=== PATIENT | female | born 1950 | race Caucasian/White ===

== ENCOUNTER 2017-08-24 08:56 | Emergency (ER) | payer MEDICARE ==
[~2017-08-24] VITALS: Ht 157.5 cm; Wt 65.0 kg
[2017-08-24 09:01] VITALS: BP 172/87; PULSE 77; RESP 16; TEMP 97.4; O2SAT 100
--- NOTE | 2017-08-24 09:13 | PD ---
HPI Chief Complaint: Abdominal Pain Time Seen by Provider: 09:09 Travel History International Travel<30 days: No Contact w/Intl Traveler<30days: No Traveled to known affect area: No History of Present Illness HPI Patient is visiting from [place]. Patient comes in complaining of suprapubic area pain, rates it as 5 out of 10, crampy in nature, worse with urination. Patient is also complaining of frequency dysuria and urgency. Patient denies any alleviating or aggravating factors. Patient denies any associated factors such as fever cough chest pain back pain nausea vomiting or diarrhea PFSH Past Medical History Cardiovascular Problems: Yes Diminished Hearing: No Genitourinary: Yes (UTI) Headaches: Yes Hypertension: Yes Respiratory: Yes (BRONCHITIS) Menopausal: Yes : 1 Para: 1 Past Surgical History Section: Yes Mastectomy: Yes (RIGHT SIDE) Tonsillectomy: Yes Social History Alcohol Use: Yes (OCC) Tobacco Use: No Substance Use: No Allergies-Medications (Allergen,Severity, Reaction): Coded Allergies: No Known Allergies (Unverified Adverse Reaction, Unknown, 08/24/17) Reported Meds & Prescriptions Reported Meds & Active Scripts Active Metoprolol Tartrate 25 Mg Tab 25 Mg PO BID Lisinopril 20 Mg Tab 20 Mg PO DAILY Review of Systems Except as stated in HPI: all other systems reviewed are Neg General / Constitutional: No: Fever Eyes: No: Visual changes HENT: No: Headaches Cardiovascular: No: Chest Pain or Discomfort Respiratory: No: Shortness of Breath Gastrointestinal: Positive: Abdominal Pain (Suprapubic) Genitourinary: No: Dysuria Musculoskeletal: No: Pain Skin: No Rash Neurologic: No: Weakness Psychiatric: No: Depression Endocrine: No: Polydipsia Hematologic/Lymphatic: No: Easy Bruising Physical Exam Narrative GENERAL: SKIN: Warm and dry. HEAD: Atraumatic. Normocephalic. EYES: Pupils equal and round. No scleral icterus. No injection or drainage. ENT: No nasal bleeding or discharge. Mucous membranes pink and moist. NECK: Trachea midline. No JVD. CARDIOVASCULAR: Regular rate and rhythm. RESPIRATORY: No accessory muscle use. Clear to auscultation. Breath sounds equal bilaterally. GASTROINTESTINAL: Abdomen soft, non-tender, nondistended. MUSCULOSKELETAL: Extremities without clubbing, cyanosis, or edema. No obvious deformities. NEUROLOGICAL: Awake and alert. No obvious cranial nerve deficits. Motor grossly within normal limits. Five out of 5 muscle strength in the arms and legs. Normal speech. PSYCHIATRIC: Appropriate mood and affect; insight and judgment normal. Data Data Last Documented VS Vital Signs Date Time Temp Pulse Resp B/P (MAP) Pulse Ox O2 Delivery O2 Flow Rate FiO2 08/24/17 13:16 08/24/17 09:18 97.6 75 14 100 Orders Orders Urinalysis - C+S If Indicated (08/24/17 09:09) Abdomen, Flat & Upright (08/24/17 ) Chest, Single Ap (08/24/17 09:09) Ct Abd/Pel W/O Iv Contrast (08/24/17 10:24) Ed Discharge Order (08/24/17 12:29) Labs Laboratory Tests Test 08/24/17 09:15 Urine Color LIGHT-YELLOW Urine Turbidity CLEAR Urine pH 6.0 Urine Specific [place] 1.006 Urine Protein NEG mg/dL Urine Glucose (UA) NEG mg/dL Urine Ketones NEG mg/dL Urine Occult Blood NEG Urine Nitrite NEG Urine Bilirubin NEG Urine Urobilinogen LESS THAN 2.0 MG/DL Urine Leukocyte Esterase NEG Urine RBC 1 /hpf Urine WBC LESS THAN 1 /hpf Urine Squamous Epithelial Cells <1 /hpf Microscopic Urinalysis Comment CULT NOT INDICATED MDM Medical Decision Making Medical Screen Exam Complete: Yes Emergency Medical Condition: Yes Medical Record Reviewed: Yes Differential Diagnosis SBO versus ileus versus free air versus UTI Narrative Course patient's ct showed retroperitoneal lymph nodes which need to be evaluated for possible cancer. you are being mandatory referred to oncologist dr paige, please keep your appointment Diagnosis Primary Impression: hypertension-medicatio refill Additional Impression: abdominal pain due to lymphadenopathy Referrals: Jb Paige MD [facility] Patient Instructions: Abdominal Pain (ED), General Instructions, Hypertension ( DC) Additional Instructions: keep your appointment with dr paige oncologist to follow up with your enlarged lymph nodes found in your abdomen which can be cancerous Scripts Metoprolol Tartrate (Metoprolol Tartrate) 25 Mg Tab 25 MG PO BID, #60 TAB 0 Refills Prov: Paxton Bear MD 08/24/17 Lisinopril (Lisinopril) 20 Mg Tab 20 MG PO DAILY, #30 TAB 0 Refills Prov: Paxton Bear MD 08/24/17 Disposition: 01 DISCHARGE HOME Condition: Stable Paxton Bear MD Aug 24, 2017 09:13
[2017-08-24 09:18] VITALS: BP 181/83; PULSE 75; RESP 14; TEMP 97.6; O2SAT 100
[2017-08-24] MEDS ORDERED: METO25TA3 PO ×2 (09:25→12:20)
[2017-08-24] MEDS ORDERED: LISI-515 PO ×2 (09:25→12:20)
[2017-08-24 09:58] LABS: BILIRUBIN, URINE NEG (NEG); BLOOD, URINE NEG (NEG); GLUCOSE,URINE NEG (NEG); KETONE, URINE NEG (NEG); NITRITE,URINE NEG (NEG); SQUAMOUS EPITHELIAL CELL URINE <1 /hpf (0-5); URINE COLOR LIGHT-YELLOW (YELLW/STRAW); URINE LEUKOCYTE ESTERASE NEG (NEG)
--- NOTE | 2017-08-24 10:17 | RADRPT ---
EXAM DATE/TIME: 08/24/2017 09:50 [facility] COMPARISON: No previous studies available for comparison. INDICATIONS : Cough. MEDICAL HISTORY : high blood pressure SURGICAL HISTORY : None. ENCOUNTER: Initial ACUITY: 2 days PAIN SCORE: 0/10 LOCATION: Bilateral chest FINDINGS: A single view of the chest demonstrates the lungs to be clear without evidence of mass, infiltrate or effusion. There is moderate elevation of the right hemidiaphragm. The cardiomediastinal contours ar e unremarkable. Osseous structures are intact. CONCLUSION: 1. Moderate elevation right hemidiaphragm. 2. The lungs are clear. Filipe Verde MD on August 24, 2017 at 10:13 Board Certified Radiologist. This report was verified electronically.
--- NOTE | 2017-08-24 10:22 | RADRPT ---
EXAM DATE/TIME: 08/24/2017 09:46 [facility] COMPARISON: No previous studies available for comparison. INDICATIONS : Abdomen pain. MEDICAL HISTORY : None. SURGICAL HISTORY : section. ENCOUNTER: Initial ACUITY: 2 days PAIN SCORE: 8/10 LOCATION: Bilateral abdomen FINDINGS: Supine and upright views of the abdomen were performed. Elevation right hemidiaphragm. Gaseous disten tion of bowel loops in the right abdomen. No air fluid levels are seen. No abnormal masses, calcifi cations, or organomegaly is seen. The visualized lower lungs are clear. No evidence of free intrape ritoneal gas. The osseous structures are unremarkable. CONCLUSION: Mild gaseous distention of bowel loops in right abdomen. No obstruction seen. Umesh Gastelum MD on August 24, 2017 at 10:18 Board Certified Radiologist. This report was verified electronically.
--- NOTE | 2017-08-24 11:15 | RADRPT ---
EXAM DATE/TIME: 08/24/2017 10:46 [facility] COMPARISON: No previous studies available for comparison. INDICATIONS : Abdominal pain, polyuria ORAL CONTRAST: No oral contrast ingested. RADIATION DOSE: 7.4 CTDIvol (mGy) MEDICAL HISTORY : Cardiovascular disease. Hypertension. SURGICAL HISTORY : Mastectomy, right. Hysterectomy. ENCOUNTER: Initial ACUITY: 1 day PAIN SCALE: 7/10 LOCATION: Bilateral Abdomen TECHNIQUE: Volumetric scanning of the abdomen and pelvis was performed. Using automated exposure control and ad justment of the mA and/or kV according to patient size, radiation dose was kept as low as reasonably achievable to obtain optimal diagnostic quality images. DICOM format image data is available electro nically for review and comparison. FINDINGS: LOWER LUNGS: The visualized lower lungs are clear. LIVER: Homogeneous density without lesion. There is no dilation of the biliary tree. A calcified gallstone within an otherwise normal appearing gallbladder. SPLEEN: Normal size without lesion. PANCREAS: Within normal limits. KIDNEYS: Normal in size and shape. There is no mass, stone, or hydronephrosis. ADRENAL GLANDS: There is a 1.7 cm low-density nodule involving the lateral limb of the left adrenal gland. Hounsfield units are 7. Right adrenal gland is normal. VASCULAR: There is no aortic aneurysm. BOWEL/MESENTERY: The stomach, small bowel, and colon demonstrate no acute abnormality. There is no free intraperitone al air or fluid. Colonic diverticulosis without acute abnormality. ABDOMINAL WALL: Within normal limits. RETROPERITONEUM: Small retroperitoneal lymph nodes are seen scattered throughout. The largest discernible lymph node o n this exam without contrast is 1.3 x 1.1 cm projecting between the aorta and IVC. BLADDER: No wall thickening or mass. REPRODUCTIVE: Within normal limits. INGUINAL: There is no lymphadenopathy or hernia. MUSCULOSKELETAL: Within normal limits for patient age. CONCLUSION: 1. No acute abnormality to explain the patient's pain. 2. Retroperitoneal adenopathy. Clinical evaluation for any signs of a myeloproliferative disorder or metastatic disease is suggested. 3. Colonic diverticulosis. 4. Cholelithiasis. Long Crowell Jr., MD on August 24, 2017 at 11:05 Board Certified Radiologist. This report was verified electronically.
== END 2017-08-24 13:18 | disposition home or self-care (01) ==
LOC: NEPC 08:56
DX: I10 Essential (primary) hypertension (principal); R59.0 Localized enlarged lymph nodes
CPT/HCPCS: 71045; 74019; 74176; 81001

== ENCOUNTER 2017-08-28 07:51 | Inpatient (IN) | payer MEDICARE ==
[~2017-08-28] VITALS: Ht 157.5 cm; Wt 65.3 kg
[~2017-08-28 07:51] MED LIST: LISI-515 PO; METO25TA3 PO
--- NOTE | 2017-08-28 07:55 | PD ---
HPI Chief Complaint: Abdominal pain Time Seen by Provider: 07:55 Travel History International Travel<30 days: No Contact w/Intl Traveler<30days: No Traveled to known affect area: No History of Present Illness HPI 66-year-old female came to the emergency room with vague complaints of abdominal pain and urinary incontinence. She points to the left lower quadrant of her abdomen and says this pain has been progressively getting worse for past 3 days. Patient was in the emergency room 3 days ago when CAT scan and UA was done. Patient says that since then urinary incontinence has been a chief complain where her urine just comes out. She has some lower back pain mostly on the left side. No history of nausea or vomiting. Patient was brought in by EMS and is quite disheveled and poor hygienic condition. There was a strong smell of urine odor from her. Vital signs are stable otherwise. Patient does not appear to be in any significant distress per se. PFSH Past Medical History Narrative Medical List of her past medical, surgical, social and family history reviewed from the nursing note. Cardiovascular Problems: Yes Diminished Hearing: No Genitourinary: Yes (UTI) Headaches: Yes Hypertension: Yes Musculoskeletal: Yes (generalized pain) Respiratory: Yes (BRONCHITIS) Menopausal: Yes : 1 Para: 1 Past Surgical History Section: Yes Mastectomy: Yes (RIGHT SIDE) Tonsillectomy: Yes Social History Alcohol Use: Yes (OCC wine with dinner) Tobacco Use: No Substance Use: No Allergies-Medications (Allergen,Severity, Reaction): Coded Allergies: iodine (Verified Allergy, Severe, SYNCOPE, 08/28/17) Comments List of her allergies reviewed from the nursing note. Reported Meds & Prescriptions Reported Meds & Active Scripts Active Metoprolol Tartrate 25 Mg Tab 25 Mg PO BID Lisinopril 20 Mg Tab 20 Mg PO DAILY Narrative Medication List of her home medications reviewed from the nursing note. Review of Systems Except as stated in HPI: all other systems reviewed are Neg Gastrointestinal: Positive: Abdominal Pain Genitourinary: Positive: Incontinence Physical Exam Narrative GENERAL: Awake, alert, disheveled, poor skin hygiene, no obvious distress SKIN: Focused skin assessment warm/dry. Poor skin hygiene HEAD: Atraumatic. Normocephalic. EYES: Pupils equal and round. No scleral icterus. No injection or drainage. ENT: No nasal bleeding or discharge. Mucous membranes pink and moist. NECK: Trachea midline. No JVD. CARDIOVASCULAR: Regular rate and rhythm. No murmur appreciated. RESPIRATORY: No accessory muscle use. Clear to auscultation. Breath sounds equal bilaterally. GASTROINTESTINAL: Abdomen soft, non-tender, nondistended. Hepatic and splenic margins not palpable. MUSCULOSKELETAL: No obvious deformities. No clubbing. No cyanosis. No edema. NEUROLOGICAL: Awake and alert. No obvious cranial nerve deficits. Motor grossly within normal limits. Normal speech. PSYCHIATRIC: Appropriate mood and affect; insight and judgment normal. Data Data Last Documented VS Orders Orders Complete Blood Count With Diff (08/28/17 08:08) Comprehensive Metabolic Panel (08/28/17 08:08) Urinalysis - C+S If Indicated (08/28/17 08:08) Mri L Spine W&W/O Contrast (08/28/17 ) ^ Straight Catheter (08/28/17 08:08) Sodium Chlor 0.9% 1000 Ml Inj (Ns 1000 M (08/28/17 09:15) Gadodiamide Pf Inj (Omniscan Pf Inj) (08/28/17 11:53) Admit Order (Ed Use Only) (08/28/17 13:32) Labs Laboratory Tests Test 08/28/17 08:15 08/28/17 08:35 Urine Color YELLOW Urine Turbidity CLEAR Urine pH 6.0 Urine Specific [place] 1.021 Urine Protein TRACE mg/dL Urine Glucose (UA) NEG mg/dL Urine Ketones TRACE mg/dL Urine Occult Blood NEG Urine Nitrite NEG Urine Bilirubin NEG Urine Urobilinogen LESS THAN 2.0 MG/DL Urine Leukocyte Esterase NEG Urine RBC 1 /hpf Urine WBC LESS THAN 1 /hpf Urine Squamous Epithelial Cells 1 /hpf Urine Mucus FEW /lpf Microscopic Urinalysis Comment CATH-CULT NOT IND White Blood Count 4.3 TH/MM3 Red Blood Count 4.56 MIL/MM3 Hemoglobin 13.1 GM/DL Hematocrit 39.7 % Mean Corpuscular Volume 87.2 FL Mean Corpuscular Hemoglobin 28.8 PG Mean Corpuscular Hemoglobin Concent 33.0 % Red Cell Distribution Width 15.4 % Platelet Count 234 TH/MM3 Mean Platelet Volume 7.9 FL Neutrophils (%) (Auto) 64.3 % Lymphocytes (%) (Auto) 23.4 % Monocytes (%) (Auto) 10.0 % Eosinophils (%) (Auto) 1.7 % Basophils (%) (Auto) 0.6 % Neutrophils # (Auto) 2.8 TH/MM3 Lymphocytes # (Auto) 1.0 TH/MM3 Monocytes # (Auto) 0.4 TH/MM3 Eosinophils # (Auto) 0.1 TH/MM3 Basophils # (Auto) 0.0 TH/MM3 CBC Comment DIFF FINAL Differential Comment Blood Urea Nitrogen 16 MG/DL Creatinine 0.65 MG/DL Random Glucose 103 MG/DL Total Protein 8.3 GM/DL Albumin 4.1 GM/DL Calcium Level 9.3 MG/DL Alkaline Phosphatase 74 U/L Aspartate Amino Transf (AST/SGOT) 27 U/L Alanine Aminotransferase (ALT/SGPT) 19 U/L Total Bilirubin 0.6 MG/DL Sodium Level 140 MEQ/L Potassium Level 3.4 MEQ/L Chloride Level 106 MEQ/L Carbon Dioxide Level 25.6 MEQ/L Anion Gap 8 MEQ/L Estimat Glomerular Filtration Rate 91 ML/MIN MDM Medical Decision Making Medical Screen Exam Complete: Yes Emergency Medical Condition: Yes Medical Record Reviewed: Yes Differential Diagnosis Spinal cord compression, myelopathy, UTI Narrative Course 11:47 AM blood tests and UA results are back and within acceptable limits. I did not order a repeat CT scan since one was done just 3 days ago and was negative. I have ordered an MRI of her lumbar spine to rule out any myelopathy regarding the urinary incontinence. If that is negative patient will be discharged home and she needs to follow-up with her primary care. 1:15 PM MRI of the lumbar spine shows severe canal stenosis at L4-L5. At this point I put a call out for the neurosurgeon and would like to admit the patient. Neurosurgeon can consult on the patient and recommend their treatment. 1:21 PM I just discussed the case with Dr. Chen wants the patient to be admitted medically and also wanted a urology consult for urodynamic studies. Awaiting for the hospitalist callback. Procedures EKG Prior to Arrival: No Diagnosis Primary Impression: Lumbar spinal stenosis Qualified Codes: M48.062 - Spinal stenosis, lumbar region with neurogenic claudication Additional Impression: Urinary incontinence Qualified Codes: N39.45 - Continuous leakage Admitting Information Admitting Physician Requests: Admit Princess Malhotra MD Aug 28, 2017 07:55
[2017-08-28 07:59] VITALS: BP 181/79; PULSE 83; RESP 16; TEMP 98.1; O2SAT 99
[2017-08-28 08:58] LABS: BILIRUBIN, URINE NEG (NEG); BLOOD, URINE NEG (NEG); GLUCOSE,URINE NEG (NEG); KETONE, URINE TRACE mg/dL (NEG); MUCUS URINE FEW /lpf (OCC); NITRITE,URINE NEG (NEG); SQUAMOUS EPITHELIAL CELL URINE 1 /hpf (0-5); URINE COLOR YELLOW (YELLW/STRAW); URINE LEUKOCYTE ESTERASE NEG (NEG)
[2017-08-28 09:03] LABS: AUTOMATED NEUTROPHIL # 2.8 TH/MM3 (1.8-7.7); BASOPHIL % 0.6 % (0.0-2.0); EOSINOPHIL # 0.1 TH/MM3 (0-0.4); EOSINOPHIL % 1.7 % (0.0-4.0); HEMATOCRIT 39.7 % (35.0-46.0); HEMOGLOBIN 13.1 GM/DL (11.6-15.3); LYMPH % 23.4 % (9.0-44.0); MEAN CELL VOLUME 87.2 FL (80.0-100.0); MEAN CORPUSCULAR HEMOGLOBIN 28.8 PG (27.0-34.0); MEAN PLATELET VOLUME 7.9 FL (7.0-11.0); MONOCYTE # 0.4 TH/MM3 (0-0.9); NEUT % 64.3 % (16.0-70.0); PLATELET COUNT 234 TH/MM3 (150-450); RED BLOOD COUNT 4.56 MIL/MM3 (4.00-5.30); RED CELL DISTRIBUTION WIDTH 15.4 % (11.6-17.2); WHITE BLOOD COUNT 4.3 TH/MM3 (4.0-11.0)
[2017-08-28] MEDS ORDERED: SODIUM CHLOR 0.9% 1000 ML INJ 1,000 ML IV ONE (09:15)
[2017-08-28 09:23] LABS: ALBUMIN 4.1 GM/DL (3.4-5.0); BICARBONATE 25.6 MEQ/L (21.0-32.0); BLOOD UREA NITROGEN 16 MG/DL (7-18); CALCIUM 9.3 MG/DL (8.5-10.1); CHLORIDE 106 MEQ/L (98-107); CREATININE 0.65 MG/DL (0.50-1.00); GLOMERULAR FILTRATION RATE 91 ML/MIN (>89); GLUCOSE,RANDOM 103 MG/DL (74-106); SODIUM (NA) 140 MEQ/L (136-145)
[2017-08-28 09:24] LABS: ALT (GPT) 19 U/L (10-53); AST (GOT) 27 U/L (15-37)
[2017-08-28 09:26] VITALS: BP 126/60; PULSE 80; RESP 16; O2SAT 98
[2017-08-28 09:27] LABS: ALKALINE PHOSPHATASE 74 U/L (45-117); TOTAL BILIRUBIN ADULT 0.6 MG/DL (0.2-1.0); TOTAL PROTEIN 8.3 GM/DL (6.4-8.2)
[2017-08-28 11:30] VITALS: BP 118/65; PULSE 82; RESP 16; O2SAT 98
[2017-08-28] MEDS ORDERED: GADODIAMIDE PF 287 MG/ML 5 ML VIAL (for RAD MRI) IVCONTRAST ONE (11:53)
--- NOTE | 2017-08-28 12:30 | RADRPT ---
EXAM DATE/TIME: 08/28/2017 11:19 [facility] COMPARISON: No previous studies available for comparison. INDICATIONS : Urinary incontinence. CONTRAST: 12 cc Omniscan (gadodiamide) IV MEDICAL HISTORY : Carcinoma, breast. Hypertension. SURGICAL HISTORY : Tonsillectomy. Mastectomy, right. section. ENCOUNTER: Subsequent ACUITY: 4-6 days PAIN SCORE: 3/10 LOCATION: back. TECHNIQUE: Multiplanar multisequence MRI of the lumbar spine was performed with and without contrast. FINDINGS: The most caudal appearing lumbar vertebra is numbered as L5. VERTEBRAE: Mild degenerative type marrow signal changes most totally adjacent to the L4-5 intervertebral disc. N o evidence of spondylolisthesis. Slight left convex scoliosis. CONUS: Normal level and configuration. POST CONTRAST: No abnormal areas of contrast enhancement are seen. T12-L1: The thecal sac has a normal diameter. No evidence of disc bulge or protrusion. The neural foramina are patent bilaterally. L1-L2: Normal annular disc bulge with mild broad undulating dorsal disc protrusion, minimally asymmetric to the left with slight indentation of the thecal sac. No canal or foraminal compromise. L2-L3: Mild annular disc bulge. No significant canal or foraminal compromise. L3-L4: Annular disc bulge with minimal broad superimposed dorsal protrusion. Mild facet and ligamentous hype rtrophy contribute in slight flattening of the thecal sac. Foramina appear adequate. L4-L5: Annular disc bulge with broad moderate superimposed dorsal disc protrusion. Prominent posterior ligam entous and facet hypertrophy contribute to moderately severe concentric canal stenosis. Canal diamete r is reduced to subcentimeter. L5-S1: The thecal sac has a normal diameter. No evidence of disc bulge or protrusion. The neural foramina are patent bilaterally. Bilateral mild posterior facet arthropathy. CONCLUSION: Fairly severe canal stenosis at L4-5. Less severe changes at other levels as above Thad Patino MD on August 28, 2017 at 12:22 Board Certified Radiologist. This report was verified electronically.
[2017-08-28 13:14] VITALS: BP 120/62; PULSE 85; RESP 14; O2SAT 98
[2017-08-28] MEDS ORDERED: ONDANSETRON HCL 4 MG/2 ML VIAL IVP PRN (13:45)
[2017-08-28] MEDS ORDERED: MAGNESIUM HYDROXIDE SUSP 30 ML CUP PO PRN (13:45)
[2017-08-28] MEDS ORDERED: BISACODYL 10 MG SUPP RECTAL PRN (13:45)
[2017-08-28] MEDS: SODIUM CHLOR 0.45% 1000 ML INJ 1,000 ML IV SCH (13:45)
[2017-08-28] MEDS ORDERED: SODIUM CHLORIDE 0.9% FLUSH 10 ML FLUSH IV FLUSH PRN (13:45)
[2017-08-28] MEDS ORDERED: LACTULOSE SYRUP 20 GM/30 ML CUP PO PRN (13:45)
[2017-08-28] MEDS ORDERED: SENNOSIDES 8.6 MG TAB PO PRN (13:45)
[2017-08-28] MEDS ORDERED: NALOXONE HCL 0.4 MG/ML AMP IV PUSH PRN (13:45)
--- NOTE | 2017-08-28 13:47 | HHI.HP ---
[facility] Unknown Admission Diagnosis Lumbar stenosis, urinary incontinence Diagnoses: Chief Complaint: Abdominal pain, back pain, lower extremity weakness, urinary incontinence Travel History International Travel<30 Days: No Contact w/Intl Traveler <30 Da: No Traveled to Known Affected Are: No History of Present Illness This is a 66-year-old female past medical history of hypertension who presented with abdominal pain, back pain, lower extremity weakness, and urinary incontinence. Patient is a very poor historian and sometimes have difficulty answering questions because she is tangential with her conversation. Patient stated that she had abdominal pain yesterday so went to the emergency department. I told patient that she is actually here a few days ago for this complaining of the same problems. She then stated that her abdominal pain occurred about a week ago and it got better but got worse yesterday. Abdominal pain is more like a pressure in the right lower quadrant. When she was seen in the ER a couple of days ago for this CT scan was negative. Patient then stated that she also had mid back pain that started yesterday night and lower extremity weakness. She also stated that she developed incontinence since yesterday. Patient stated that urine will come out and she would not know it. She also complained about urinary urgency. UA was done in the emergency department which was negative. Patient also admits to lower extremity weakness. She stated that when she walks she feels like her lower extremity is numb. Patient also stated that she had back pain about 3 times in her life but it is not chronic and there was no recent pain since this episode. Patient also complained about a right posterior headache. She states that she had a headache in the past about 2-3 times. Headache improved with Tylenol. She denies any visual changes or focal neurological deficits. Patient also complained of 1 day of watery stools. She said that she only had 2 bowel movements yesterday. Denies nausea vomiting. Denies any fevers or chills. All other review of system reviewed and negative. Past Family Social History Past Medical History Hypertension History of breast cancer in remission Past Surgical History Right lumpectomy 2 years ago Tonsillectomy Cyst removal Right arm repair secondary to trauma Reported Medications Metoprolol Tartrate 25 Mg Tab 25 Mg PO BID Lisinopril 20 Mg Tab 20 Mg PO DAILY Allergies: Coded Allergies: iodine (Verified Allergy, Severe, SYNCOPE, 08/28/17) Active Ordered Medications Current Medications Sodium Chloride 1,000 ml @ 999 mls/hr BOLUS ONCE IV Last administered on at 09:15; Start 08/28/17 at 09:15; Stop 08/28/17 at 10:15; Status DC Gadodiamide (Omniscan Pf Inj) 12 ml STK-MED ONCE IVCONTRAST Last administered on 08/28/17at 11:53; Start 08/28/17 at 11:53; Stop 08/28/17 at 11:54; Status DC Family History Past family history reviewed negative. Social History Patient rarely drinks wine. Denies any tobacco or illicit drug use. Physical Exam Vital Signs Vital Signs Date Time Temp Pulse Resp B/P (MAP) Pulse Ox O2 Delivery O2 Flow Rate FiO2 08/28/17 13:14 85 14 120/62 (81) 98 Room Air 08/28/17 11:30 82 16 118/65 (82) 98 Room Air 08/28/17 09:26 80 16 126/60 (82) 98 Room Air 08/28/17 07:59 98.1 83 16 181/79 (113) 99 Physical Exam GENERAL: This is a well-nourished, well-developed patient, in no apparent distress but smells like urine. SKIN: No rashes, ecchymoses or lesions. Cool and dry. HEAD: Atraumatic. Normocephalic. No temporal or scalp tenderness. EYES: Pupils equal round and reactive. Extraocular motions intact. No scleral icterus. No injection or drainage. ENT: Nose without bleeding, purulent drainage or septal hematoma. Throat without erythema, tonsillar hypertrophy or exudate. Uvula midline. Airway patent. NECK: Trachea midline. No JVD or lymphadenopathy. Supple, nontender, no meningeal signs. CARDIOVASCULAR: Regular rate and rhythm without murmurs, gallops, or rubs. RESPIRATORY: Clear to auscultation. Breath sounds equal bilaterally. No wheezes , rales, or rhonchi. GASTROINTESTINAL: Abdomen soft, non-tender, nondistended. No hepato-splenomegaly , or palpable masses. No guarding. MUSCULOSKELETAL: Extremities without clubbing, cyanosis, or edema. No joint tenderness, effusion, or edema noted. No calf tenderness. Negative Homans sign bilaterally. NEUROLOGICAL: Awake and alert. Cranial nerves II through XII intact. Motor and sensory grossly within normal limits. Five out of 5 muscle strength in all muscle groups. Normal speech. Laboratory Laboratory Tests Test 08/28/17 08:15 08/28/17 08:35 Urine Color YELLOW Urine Turbidity CLEAR Urine pH 6.0 Urine Specific [place] 1.021 Urine Protein TRACE Urine Glucose (UA) NEG Urine Ketones TRACE Urine Occult Blood NEG Urine Nitrite NEG Urine Bilirubin NEG Urine Urobilinogen LESS THAN 2.0 Urine Leukocyte Esterase NEG Urine RBC 1 Urine WBC LESS THAN 1 Urine Squamous Epithelial Cells 1 Urine Mucus FEW Microscopic Urinalysis Comment CATH-CULT NOT IND White Blood Count 4.3 Red Blood Count 4.56 Hemoglobin 13.1 Hematocrit 39.7 Mean Corpuscular Volume 87.2 Mean Corpuscular Hemoglobin 28.8 Mean Corpuscular Hemoglobin Concent 33.0 Red Cell Distribution Width 15.4 Platelet Count 234 Mean Platelet Volume 7.9 Neutrophils (%) (Auto) 64.3 Lymphocytes (%) (Auto) 23.4 Monocytes (%) (Auto) 10.0 Eosinophils (%) (Auto) 1.7 Basophils (%) (Auto) 0.6 Neutrophils # (Auto) 2.8 Lymphocytes # (Auto) 1.0 Monocytes # (Auto) 0.4 Eosinophils # (Auto) 0.1 Basophils # (Auto) 0.0 CBC Comment DIFF FINAL Differential Comment Blood Urea Nitrogen 16 Creatinine 0.65 Random Glucose 103 Total Protein 8.3 Albumin 4.1 Calcium Level 9.3 Alkaline Phosphatase 74 Aspartate Amino Transf (AST/SGOT) 27 Alanine Aminotransferase (ALT/SGPT) 19 Total Bilirubin 0.6 Sodium Level 140 Potassium Level 3.4 Chloride Level 106 Carbon Dioxide Level 25.6 Anion Gap 8 Estimat Glomerular Filtration Rate 91 Result Diagram: 08/28/17 0835 08/28/17 0835 Imaging Last Impressions Lumbar Spine MRI 08/28/17 0000 Signed Impressions: Service Date/Time: Monday, August 28, 2017 11:19 - CONCLUSION: Fairly severe canal stenosis at L4-5. Less severe changes at other levels as above Thad C. Tonkin, MD Caprini VTE Risk Assessment Caprini VTE Risk Assessment: Mod/High Risk (score >= 2) Caprini Risk Assessment Model Point Value = 1 Point Value = 2 Point Value = 3 Point Value = 5 Age 41-60 Minor surgery BMI > 25 kg/m2 Swollen legs Varicose veins or History of unexplained or recurrent spontaneous Oral contraceptives or hormone replacement Sepsis (< 1 month) Serious lung disease, including pneumonia (< 1 month) Abnormal pulmonary function Acute myocardial infarction Congestive heart failure (< 1 month) History of inflammatory bowel disease Medical patient at bed rest Age 61-74 Arthroscopic surgery Major open surgery (> 45 min) Laparoscopic surgery (> 45 min) Malignancy Confined to bed (> 72 hours) Immobilizing plaster cast Central venous access Age >= 75 History of VTE Family history of VTE Factor V Leiden Prothrombin [id number] Lupus anticoagulant Anticardiolipin antibodies Elevated serum homocysteine Heparin-induced thrombocytopenia Other congenital or acquired thrombophilia Stroke (< 1 month) Elective arthroplasty Hip, pelvis, or leg fracture Acute spinal cord injury (< 1 month) Prophylaxis Regimen Total Risk Factor Score Risk Level Prophylaxis Regimen 0-1 Low Early ambulation 2 Moderate Order ONE of the following: *Sequential Compression Device (SCD) *Heparin 5000 units SQ BID 3-4 Higher Order ONE of the following medications: *Heparin 5000 units SQ TID *Enoxaparin/Lovenox 40 mg SQ daily (WT < 150 kg, CrCl > 30 mL/min) *Enoxaparin/Lovenox 30 mg SQ daily (WT < 150 kg, CrCl > 10-29 mL/min) *Enoxaparin/Lovenox 30 mg SQ BID (WT < 150 kg, CrCl > 30 mL/min) AND/OR *Sequential Compression Device (SCD) 5 or more Highest Order ONE of the following medications: *Heparin 5000 units SQ TID (Preferred with Epidurals) *Enoxaparin/Lovenox 40 mg SQ daily (WT < 150 kg, CrCl > 30 mL/min) *Enoxaparin/Lovenox 30 mg SQ daily (WT < 150 kg, CrCl > 10-29 mL/min) *Enoxaparin/Lovenox 30 mg SQ BID (WT < 150 kg, CrCl > 30 mL/min) AND *Sequential Compression Device (SCD) Assessment and Plan Assessment and Plan This is a 66-year-old female with history of hypertension complaining of urinary incontinence, abdominal pain, back pain, lower extremity weakness Abdominal pain -CT scan done on 08-26-2017 was negative except for the retroperitoneal adenopathy. This would not explain her abdominal pain. UA negative. Will do a mandatory urine culture. -MRI of the lower back was also done secondary to patient complaining of lower back pain which may be refer her abdominal pain and that shows severe L4-L5 canal stenosis. -See treatment as below. Lower back pain with lower extremity weakness and urinary incontinence -MRI showed severe L4-L5 canal stenosis. ED physician already spoke to Dr. Chen in regards to surgical intervention. We will place consult for Dr. Chen. Dr. Chen recommended urodynamic studies. Will place order for urologist. Urinary incontinence -See treatment as above. Hypertension -Resume home medication. Headache -Patient is a poor historian. She says she had this headache for prior but then she states she was very concerned about this headache. Tylenol did help with a headache. -We will get a CT scan of the head. No red flags noted. This is most likely a tension headache. DVT prophylaxis -SCDs -We will start chemoprophylaxis if CT scan of the head is negative. Discussed Condition With patient Tiara Swift MD Aug 28, 2017 13:47
--- NOTE | 2017-08-28 14:53 | RADRPT ---
EXAM DATE/TIME: 08/28/2017 14:34 [facility] COMPARISON: No previous studies available for comparison. INDICATIONS : Headache and abdominal pain. RADIATION DOSE: 33.67 CTDIvol (mGy) MEDICAL HISTORY : Hypertension. SURGICAL HISTORY : mastectomy ENCOUNTER: Initial ACUITY: 1 week PAIN SCALE: 8/10 LOCATION: Head TECHNIQUE: Multiple contiguous axial images were obtained of the head. Using automated exposure control and adj ustment of the mA and/or kV according to patient size, radiation dose was kept as low as reasonably a chievable to obtain optimal diagnostic quality images. DICOM format image data is available electro nically for review and comparison. FINDINGS: CEREBRUM: The ventricles are normal for age. No evidence of midline shift, mass lesion, hemorrhage or acute in farction. No extra-axial fluid collections are seen. POSTERIOR FOSSA: The cerebellum and brainstem are intact. The 4th ventricle is midline. The cerebellopontine angle i s unremarkable. EXTRACRANIAL: The visualized portion of the orbits is intact. SKULL: The calvaria is intact. No evidence of skull fracture. CONCLUSION: 1. No evidence of acute intracranial pathology. No masses are identified. Lamberto Sidhu MD on August 28, 2017 at 14:49 Board Certified Radiologist. This report was verified electronically.
[2017-08-28] MEDS ORDERED: POTASSIUM CHLORIDE 10 MEQ CONTROLLED RELEASE TAB PO ONE (16:00)
[2017-08-28] MEDS: ACETAMINOPHEN 325 MG TAB PO PRN (16:19)
[2017-08-28 16:21] VITALS: BP 170/95; PULSE 80; RESP 16; O2SAT 98
--- NOTE | 2017-08-28 18:13 | MB ---
cc: RUBY FORREST DATE OF CONSULTATION 08/28/2017 HISTORY This is a 66-year-old female with history of breast cancer status post right mastectomy 2 years ago presents with lower extremity weakness and some confusion with a 1-month history of urinary incontinence. She states that she had a history of urge incontinence in the past and then within the last month she had episodes of no sensation and the urine would come out on its own. This happened on occasion and she notes nocturia approximately two to four times at night. She denies any urinary tract infections. She did have a CT scan a few days ago when she was evaluated in the ER and the CT scan at this time demonstrated evidence of retroperitoneal adenopathy. The kidneys and the bladder were both within normal limits. She did have some diverticulosis and cholelithiasis. On this admission she underwent an MRI of her spine demonstrating severe canal stenosis at L4-L5. She denies any paresthesias or muscle weakness in her legs at present but did have some weakness earlier in the week. Urinalysis was negative. She does report some recent back pain. PAST MEDICAL HISTORY Notable for: 1. Hypertension. 2. Breast cancer. PAST SURGICAL HISTORY 1. Right lumpectomy 2 years ago. 2. . 3. Tonsillectomy. MEDICATIONS 1. Metoprolol. 2. Lisinopril. ALLERGIES ARE TO IODINE. MEDICATIONS Please refer to the chart. FAMILY HISTORY History of kidney cancer is noted. SOCIAL HISTORY She denies smoking or drug use but rarely drinks wine. PHYSICAL EXAMINATION VITAL SIGNS: Her vital signs temperature 98.1, heart rate 80, respiratory rate 16, 170/95 is her blood pressure. GENERAL: She is a somewhat disheveled 66-year-old female in no acute distress. HEENT: Normocephalic, atraumatic. Pupils equal, round, reactive to light. Extraocular movements intact. NECK: Supple. HEART: Regular rate and rhythm. LUNGS: Clear. ABDOMEN: Soft and nontender. Nontender. There is no bladder fullness on examination. Normal female external genitalia is noted. No CVA tenderness is noted. EXTREMITIES: Show no evidence of cyanosis, clubbing or edema. NEUROLOGIC: Cranial nerves II-XII are intact. Lower extremity muscle strength is 5/5 presently. LABORATORY DATA White count is 4.3, hemoglobin 13.1, hematocrit 39.7, platelet count 234. Sodium 140, potassium 3.4, chloride was 106, CO2 25.6, BUN 16, creatinine 0.65. Glucose of 130. Urinalysis shows negative. IMAGING Again CT scan from 4 days ago demonstrates retroperitoneal adenopathy. MRI the spine shows canal stenosis of L4-L5. Her head CT scan was unremarkable. ASSESSMENT A 66-year-old female with some urinary incontinence of unclear etiology. Would recommend full neurological workup given her stenosis and consider lymph node biopsy for her metastatic disease. We will consider an anticholinergic and an outpatient urodynamic study. Thank you for the consult and allowing me to participate in the care of this patient. Ruby PAEZ /5:02 PM /5:35 PM
--- NOTE | 2017-08-28 19:50 | MB ---
cc: ZARA FLOWERS M.D. DATE OF CONSULTATION: 08/28/2017 REASON FOR CONSULTATION: Lumbar stenosis. HISTORY OF PRESENT ILLNESS The patient is a 66-year-old female who presents to the emergency room with complaints of urinary incontinence. She is not very clear on her history, but approximately one month ago, she started noticing urinary incontinence. The last few days she said it is more prominent. She has been wearing diapers. Although the last two days she has had better control of her urine, although she still has urgency and frequency. She has had subjective weakness in her legs but she relates this to walking a lot. She is from [place] and has some relatives here which she has not been able to locate and apparently is currently homeless. She has a very disheveled appearance. She has a chronic history of back pain and numbness in the lower extremities distally in her feet and to some extent the upper extremities distally in the fingers also. She was seen back about four days ago when she requested a refill of her blood pressure medications and at that time also complained of some abdominal pain. On CT scan she was found have retroperitoneal adenopathy with the possibility of a metastatic disease along with diverticulosis and cholelithiasis. She was referred to medical oncology although has not been evaluated by the oncologist. Workup included an MRI scan of the lumbar spine which reveals a severe spinal stenosis at the L4-5 level, predominantly from facet ligamentum flavum hypertrophy with lesser degree of degenerate changes at other levels. Urinalysis is negative for UTI. PAST MEDICAL HISTORY: Breast cancer, hypertension, right lumpectomy a couple of years ago, , tonsillectomy, traumatic injury to the right arm. MEDICATIONS 1. Metoprolol 25 mg b.i.d. 2. Lisinopril 20 mg daily. ALLERGIES IODINE SOCIAL HISTORY She is legally , resides in [place] and currently is homeless, relates drinking on a social basis and quit smoking when she was in her 20s. REVIEW OF SYSTEMS: Pertinent positives as mentioned in the history present illness otherwise negative. LABORATORY STUDIES: White blood cell count 4.3, hemoglobin 39.7, platelet count 234, sodium 140, potassium 3.4, BUN 16, creatinine 0.65, glucose 103. Urinalysis negative for nitrites and leukocyte esterase with less than one white blood cell count and one epithelial cell. FAMILY HISTORY: Positive for cancer but otherwise negative for any coronary artery disease or stroke. PHYSICAL EXAMINATION: VITAL SIGNS: Temperature 98.1, pulse is 80, respiratory rate 16, blood pressure 170/95, oxygen saturation 98% on room air. Head: Normocephalic, atraumatic. NECK: Neck is supple with no guarding or rigidity. Midline trachea. Chest: Clear bilaterally to auscultation. Heart: Regular rate and rhythm, normal S1-S2, no murmurs. Abdomen: Soft, nontender, no hepatosplenomegaly noted. Extremities: No cyanosis, edema or tenderness. No deformity. Skin: No rashes or ecchymosis or lesions. General: This is an elderly female who has a somewhat disheveled appearance and smells of urine, in no acute distress. Neurologic: She is awake, alert. She is oriented x3. Pupils are equal, reactive, extraocular movements intact. Face symmetric, tongue is midline. Motor strength overall, she has good strength although give-way weakness in the iliopsoas and quadriceps bilaterally. Lower extremities: Babinski, equivocal on the left-side negative on the right side. No Teo's or clonus noted. Light touch sensation intact bilaterally. IMPRESSION 1. Severe L4-L5 lumbar spinal stenosis which appears to be chronic. 2. One month history of urinary incontinence with subjective weakness in the legs. It is questionable whether this is related to a paraneoplastic syndrome given her lymphadenopathy in the retroperitoneum as well as history of breast cancer, or related to the lumbar spinal stenosis. 3. Unregulated hypertension. PLAN Discussed the findings regarding the lumbar spine and recommended an L4-L5 decompressive laminectomy for the stenosis. The risks and benefits involved were discussed along with the possibility that if left untreated she could progress to more significant cauda equina syndrome with likely complete paralysis and incontinence. She is adamant that she does not want any surgical intervention at this point. She wants to discuss further with the oncologist and the urologist who has also been consulted for the incontinence. Accordingly I have recommended physical therapy involvement to prevent further deconditioning along with a urology and medical oncology evaluation. We will also obtain an MRI scan of the cervical and thoracic spine to rule out any other areas of stenosis or cord compression. Would recommend chemical and mechanical DVT prophylaxis also. MD JYOTI Noble/MANSOOR /6:21 PM /7:26 PM MTDHumberto
[2017-08-28 21:00] VITALS: BP 170/82; PULSE 69; RESP 18; TEMP 98; O2SAT 100
[2017-08-28] MEDS: DOCUSATE SODIUM 50 MG/SENNA 8.6 MG TAB PO SCH (21:31)
[2017-08-28] MEDS: METOPROLOL TARTRATE 25 MG TAB PO SCH (21:31)
[2017-08-28] MEDS: SODIUM CHLORIDE 0.9% FLUSH 10 ML FLUSH IV FLUSH SCH (21:31)
[2017-08-28 22:42] LABS: INTERNATIONAL NORMALIZED RATIO 1.1 RATIO; PROTHROMBIN TIME - PATIENT 11.2 SEC (9.8-11.6)
[2017-08-29 00:45] VITALS: BP 125/58; PULSE 75; RESP 18; TEMP 97.9; O2SAT 97
[2017-08-29] MEDS: SODIUM CHLOR 0.45% 1000 ML INJ 1,000 ML IV SCH ×3 (03:37→15:48)
[2017-08-29 04:49] LABS: BICARBONATE 25.3 MEQ/L (21.0-32.0); CALCIUM 6.7 MG/DL (8.5-10.1); CREATININE 0.42 MG/DL (0.50-1.00)
[2017-08-29 05:15] LABS: CALCIUM-PROTEIN CORRECTED 7.5 MG/DL (8.5-10.1); TOTAL PROTEIN 5.4 GM/DL (6.4-8.2)
[2017-08-29] MEDS ORDERED: DEXTROSE 50% IN WATER 50 ML VIAL(D50) IV PUSH PRN (05:15)
[2017-08-29] MEDS ORDERED: POTASSIUM CHLOR 20 MEQ PREMIX 100 ML IV ONE (05:15)
[2017-08-29] MEDS ORDERED: GLUCAGON 1 MG/ML VIAL OTHER PRN (05:15)
[2017-08-29] MEDS ORDERED: POTASSIUM CHLORIDE 25 MEQ EFFERVESCENT TAB PO ONE (05:15)
[2017-08-29 05:30] VITALS: BP 173/88; PULSE 63; RESP 19; TEMP 98.3; O2SAT 98
[2017-08-29 08:00] VITALS: BP 171/94; PULSE 80; RESP 18; TEMP 98.5; O2SAT 100
[2017-08-29] MEDS: SODIUM CHLORIDE 0.9% FLUSH 10 ML FLUSH IV FLUSH SCH ×2 (09:00→21:23)
[2017-08-29] MEDS: LISINOPRIL 20 MG TAB PO SCH (09:01)
[2017-08-29] MEDS: DOCUSATE SODIUM 50 MG/SENNA 8.6 MG TAB PO SCH ×2 (09:01→21:23)
[2017-08-29] MEDS: METOPROLOL TARTRATE 25 MG TAB PO SCH ×2 (09:01→21:23)
[2017-08-29 12:00] VITALS: BP 136/68; PULSE 73; RESP 18; TEMP 98.4; O2SAT 97
--- NOTE | 2017-08-29 13:37 | RADRPT ---
EXAM DATE/TIME: 08/29/2017 10:12 [facility] COMPARISON: No previous studies available for comparison. INDICATIONS : Lower extremity weakness. MEDICAL HISTORY : Hypertension. Carcinoma, breast. SURGICAL HISTORY : Mastectomy, right. Tonsillectomy. section. ENCOUNTER: Initial ACUITY: 2 day PAIN SCORE: 4/10 LOCATION: t-spine. TECHNIQUE: Multiplanar multisequence MRI of the thoracic spine was performed. FINDINGS: VERTEBRA: Normal vertebral body height. Homogeneous marrow signal. ALIGNMENT: Normal. CORD: Normal position and configuration. T1-T2: Normal. T2-T3: The thecal sac has a normal diameter. No evidence of disc bulge or protrusion. T3-T4: The thecal sac has a normal diameter. No evidence of disc bulge or protrusion. T4-T5: The thecal sac has a normal diameter. No evidence of disc bulge or protrusion. T5-T6: The thecal sac has a normal diameter. No evidence of disc bulge or protrusion. T6-T7: The thecal sac has a normal diameter. No evidence of disc bulge or protrusion. T7-T8: The thecal sac has a normal diameter. No evidence of disc bulge or protrusion. T8-T9: The thecal sac has a normal diameter. No evidence of disc bulge or protrusion. T9-T10: The thecal sac has a normal diameter. No evidence of disc bulge or protrusion. T10-T11: Broad mild dorsal disc protrusion centrally with slight indentation of thecal sac. The preservation o f dorsal CSF signal. No evidence of foraminal stenosis. T11-T12: The thecal sac has a normal diameter. No evidence of disc bulge or protrusion. T12-L1: The thecal sac has a normal diameter. No evidence of disc bulge or protrusion. CONCLUSION: Small broad disc protrusion at T10-11. No evidence of cord abnormality or significant canal compromis e Thad Patino MD on August 29, 2017 at 13:33 Board Certified Radiologist. This report was verified electronically.
--- NOTE | 2017-08-29 14:01 | RADRPT ---
EXAM DATE/TIME: 08/29/2017 10:12 [facility] COMPARISON: No previous studies available for comparison. INDICATIONS : Extremity weakness. MEDICAL HISTORY : Hypertension. SURGICAL HISTORY : Mastectomy, right. Tonsillectomy. ENCOUNTER: Initial ACUITY: 2 day PAIN SCORE: 4/10 LOCATION: neck TECHNIQUE: Multiplanar, multisequence MRI examination of the cervical spine was performed. FINDINGS: No acute fracture or prevertebral soft tissue swelling is noted. Cervical spondylosis is noted at C5- 6, C6-7 and C4-5. The cervical spinal cord is normal signal intensity and morphology. The craniocervi bart junction is normal. C2-C3: The thecal sac has a normal configuration. There is no evidence of disc herniation or spinal canal s tenosis. The neural foramina are patent bilaterally. C3-C4: The thecal sac has a normal configuration. There is no evidence of disc herniation or spinal canal s tenosis. The neural foramina are patent bilaterally. C4-C5: There is a tiny central disc bulge which results in effacement of the anterior thecal sac. Mild facet joint hypertrophy is noted bilaterally. Minimal spinal stenosis is noted. No significant neural fora kailey narrowing is noted. C5-C6: Mild diffuse disc bulge is noted resulting in mild effacement of the anterior thecal sac. Mild facet joint hypertrophy is noted bilaterally. Minimal spinal stenosis is noted. Mild bilateral foraminal na rrowing is noted. C6-C7: Minimal diffuse disc bulge is noted resulting in no spinal stenosis or neural foraminal narrowing. No focal disc herniation is noted. C7-T1: The thecal sac has a normal configuration. There is no evidence of disc herniation or spinal canal s tenosis. The neural foramina are patent bilaterally. CONCLUSION: 1. Tiny central disc bulge at C4-5. 2. Mild diffuse disc bulge at C5-6 and minimal diffuse disc bulge at C6-7. 3. Minimal spinal stenosis and facet joint hypertrophy at C4-5 and C5-6. 4. No fracture or prevertebral soft tissue swelling. 5. Cervical spondylosis at C5-6, C6-7 and to a lesser extent at C4-5. 6. Mild bilateral foraminal narrowing is noted at C5-6. Curtis Gross MD on August 29, 2017 at 13:50 Board Certified Radiologist. This report was verified electronically.
--- NOTE | 2017-08-29 14:19 | HHI.PR ---
Subjective Patient symptoms today Pt seen and examined. Still with some urinary incontinence Objective Vital Signs Vital Signs Date Time Temp Pulse Resp B/P (MAP) Pulse Ox O2 Delivery O2 Flow Rate FiO2 08/29/17 12:00 98.4 73 18 136/68 (90) 97 08/29/17 08:00 98.5 80 18 171/94 (119) 100 08/29/17 05:30 98.3 63 19 173/88 (116) 98 08/29/17 00:45 97.9 75 18 125/58 (80) 97 08/28/17 21:00 98.0 69 18 170/82 (111) 100 08/28/17 16:37 08/28/17 16:21 80 16 170/95 (120) 98 Room Air Intake & Output 08/29/17 08/29/17 07:00 19:00 Intake Total 1800 ml Balance 1800 ml Intake Oral 1800 ml # Voids 5 # Bowel Movements 0 Result Diagram: 08/28/17 0835 08/29/17 0720 Imaging Last 24 hours Impressions Thoracic Spine MRI 08/29/17 0000 Signed Impressions: Service Date/Time: Tuesday, August 29, 2017 10:12 - CONCLUSION: Small broad disc protrusion at T10-11. No evidence of cord abnormality or significant canal compromise Thad Patino MD Objective Remarks Abd:soft,nt,nd Medications and IVs Current Medications Medications (Trade) Dose Ordered Sig/Sarah Route Start Time Stop Time Status Last Admin Sodium Chloride 1,000 ml @ 75 mls/hr [id number] IV 08/28/17 13:45 08/29/17 13:33 (NS Flush) 2 ml UNSCH PRN IV FLUSH 08/28/17 13:45 (NS Flush) 2 ml BID IV FLUSH 08/28/17 21:00 08/28/17 21:31 (Tylenol) 650 mg Q4H PRN PO 08/28/17 13:45 08/28/17 16:19 (Zofran Inj) 4 mg Q6H PRN IVP 08/28/17 13:45 (Narcan Inj) 0.4 mg UNSCH PRN IV PUSH 08/28/17 13:45 (Lashonda-Colace) 1 tab BID PO 08/28/17 21:00 08/29/17 09:01 (Milk Of Magnesia Liq) 30 ml Q12H PRN PO 08/28/17 13:45 (Senokot) 17.2 mg Q12H PRN PO 08/28/17 13:45 (Dulcolax Supp) 10 mg DAILY PRN RECTAL 08/28/17 13:45 (Lactulose Liq) 30 ml DAILY PRN PO 08/28/17 13:45 (Prinivil) 20 mg DAILY PO 08/29/17 09:00 08/29/17 09:01 (Lopressor) 25 mg BID PO 08/28/17 21:00 08/29/17 09:01 (D50w (Vial) Inj) 50 ml UNSCH PRN IV PUSH 08/29/17 05:15 (Glucagon Inj) 1 mg UNSCH PRN OTHER 08/29/17 05:15 Assessment and Plan Assessment and Plan 66 y.o female with urinary incontinence most likely secondary to spinal stenosis L5 area Pt with h/o breast cancer with retroperitoneal adenopathy Recommend CT guided bx of retroperitoneal node to r/o metastatic breast CA Recommend oncology evaluation Sathish Alves DO Aug 29, 2017 14:19
--- NOTE | 2017-08-29 15:16 | HHI.PR ---
Subjective Remarks Follow up for urinary incontinence, L4-L5 severe spinal stenosis. Patient is currently doing well. Continues to have urinary incontinence. She would like to discuss with Oncologist regarding retroperitoneal LN bx, neurosurgical intervention. Objective Vitals Vital Signs Date Time Temp Pulse Resp B/P (MAP) Pulse Ox O2 Delivery O2 Flow Rate FiO2 08/29/17 12:00 98.4 73 18 136/68 (90) 97 08/29/17 08:00 98.5 80 18 171/94 (119) 100 08/29/17 05:30 98.3 63 19 173/88 (116) 98 08/29/17 00:45 97.9 75 18 125/58 (80) 97 08/28/17 21:00 98.0 69 18 170/82 (111) 100 08/28/17 16:37 08/28/17 16:21 80 16 170/95 (120) 98 Room Air I/O 08/28/17 08/28/17 08/28/17 08/29/17 08/29/17 08/29/17 07:00 15:00 23:00 07:00 15:00 23:00 Intake Total 1000 ml 800 ml 1000 ml Balance 1000 ml 800 ml 1000 ml Intake Oral 800 ml 1000 ml IV Total 1000 ml # Voids 1 4 # Bowel Movements 0 0 Result Diagram: 08/28/17 0835 08/29/17 0720 Imaging Last Impressions Thoracic Spine MRI 08/29/17 0000 Signed Impressions: Service Date/Time: Tuesday, August 29, 2017 10:12 - CONCLUSION: Small broad disc protrusion at T10-11. No evidence of cord abnormality or significant canal compromise Thad Patino MD Cervical Spine MRI 08/29/17 0000 Signed Impressions: Service Date/Time: Tuesday, August 29, 2017 10:12 - CONCLUSION: 1. Tiny central disc bulge at C4-5. 2. Mild diffuse disc bulge at C5-6 and minimal diffuse disc bulge at C6-7. 3. Minimal spinal stenosis and facet joint hypertrophy at C4-5 and C5-6. 4. No fracture or prevertebral soft tissue swelling. 5. Cervical spondylosis at C5-6, C6-7 and to a lesser extent at C4- 5. 6. Mild bilateral foraminal narrowing is noted at C5-6. Curtis Gross MD Lumbar Spine MRI 08/28/17 0000 Signed Impressions: Service Date/Time: Monday, August 28, 2017 11:19 - CONCLUSION: Fairly severe canal stenosis at L4-5. Less severe changes at other levels as above Thad Patino MD Head CT 08/28/17 0000 Signed Impressions: Service Date/Time: Monday, August 28, 2017 14:34 - CONCLUSION: 1. No evidence of acute intracranial pathology. No masses are identified. Lamberto Sidhu MD Objective Remarks GENERAL: Alert, NAD. SKIN: Warm and dry. HEAD: Normocephalic. EYES: No scleral icterus. No injection or drainage. NECK: Supple, trachea midline. No JVD or lymphadenopathy. CARDIOVASCULAR: Regular rate and rhythm without murmurs, gallops, or rubs. RESPIRATORY: Breath sounds equal bilaterally. No accessory muscle use. GASTROINTESTINAL: Abdomen soft, non-tender, nondistended. MUSCULOSKELETAL: No cyanosis, or edema. BACK: Nontender without obvious deformity. No CVA tenderness. Procedures None. A/P Problem List: (1) Breast cancer ICD Code: C50.919 - Malignant neoplasm of unspecified site of unspecified female breast (2) Lumbar spinal stenosis ICD Code: M48.061 - Spinal stenosis, lumbar region without neurogenic claudication Status: Acute (3) Urinary incontinence ICD Code: R32 - Unspecified urinary incontinence Status: Acute Assessment and Plan This is a 66-year-old female with history of hypertension complaining of urinary incontinence, abdominal pain, back pain, lower extremity weakness. - Severe L4-L5 spinal stenosis - Urinary incontinence - Urology as well as Neurosurgery following. - Medical oncology consulted - patient wants to discuss with oncology first. - Retroperitoneal adenopathy - Hx of Breast cancer - Depending on Oncology input, may need CT guided bx. - Possible outpatient work up. - Hypertension - Lisinopril 20mg Qday, Metoprolol 25mg BID. Full code. SCDs. Problem Qualifiers (1) Lumbar spinal stenosis: Qualified Codes: M48.062 - Spinal stenosis, lumbar region with neurogenic claudication (2) Urinary incontinence: Qualified Codes: N39.45 - Continuous leakage Radha Harper DO Aug 29, 2017 15:16
[2017-08-29 16:00] VITALS: BP 125/71; PULSE 77; RESP 18; TEMP 99; O2SAT 100
[2017-08-29] MEDS ORDERED: cefTRIAXone INJ 1,000 MG in SODIUM CHLORIDE 0.9% INJ 100 ML IV SCH (16:00)
--- NOTE | 2017-08-29 17:31 | HHI.NSPN ---
(Umesh Junior) History Chief Complaint: Incontinence or urine (Umesh Junior) Interval History The patient is a 66-year-old female who presents to the emergency room with complaints of urinary incontinence. She is not very clear on her history, but approximately one month ago, she started noticing urinary incontinence. The last few days she said it is more prominent. She has been wearing diapers. Although the last two days she has had better control of her urine, although she still has urgency and frequency. She has had subjective weakness in her legs but she relates this to walking a lot. She is from [place] and has some relatives here which she has not been able to locate and apparently is currently homeless. She has a very disheveled appearance. She has a chronic history of back pain and numbness in the lower extremities distally in her feet and to some extent the upper extremities distally in the fingers also. She was seen back about four days ago when she requested a refill of her blood pressure medications and at that time also complained of some abdominal pain. On CT scan she was found have retroperitoneal adenopathy with the possibility of a metastatic disease along with diverticulosis and cholelithiasis. She was referred to medical oncology although has not been evaluated by the oncologist. Workup included an MRI scan of the lumbar spine which reveals a severe spinal stenosis at the L4-5 level, predominantly from facet ligamentum flavum hypertrophy with lesser degree of degenerate changes at other levels. Urinalysis is negative for UTI. 08/29/17: Pt awake and alert. Resting comfortably in bed. Complains of urinary incontinence. Denies any perirectal or perivaginal numbness. She states she has soreness there from the chronic urinary output. She is in depends. Pt stats she is thinking about surgery but would like to speak with Oncology prior to deciding. (Umesh Junior) Review of Systems General: Negative for: fever, chills, insomnia Respiratory: Negative for: shortness of breath, cough, sputum Cardiovascular: Negative for: chest pain Gastrointestinal: Negative for: nausea, vomitting, diarrhea, constipation ( Umesh Junior) Exam Results Vital Signs Date Time Temp Pulse Resp B/P (MAP) Pulse Ox O2 Delivery O2 Flow Rate FiO2 08/29/17 16:00 99.0 77 18 125/71 (89) 100 08/28/17 16:21 Room Air Intake and Output 08/29/17 08/29/17 08/30/17 08:00 16:00 00:00 Intake Total 1000 ml Balance 1000 ml (Umesh Junior) Physical Examination General: Pt resting in bed in NAD. Eyes. Pupils equal, sclera anicteric Resp: CTA bilaterally Heart: NSR no murmurs Abd: Soft positive bs Skin: No cyanosis or erythema Muscle: Moves LEs with good strength 5/5. Neuro: Pt awake and alert. Follows commands well. Speech clear and appropriate. Comprehension good. She asks appropriate questions. Sensation intact in LEs. (Umesh Junior) Lab, Micro, Other Results Last Impressions Thoracic Spine MRI 08/29/17 0000 Signed Impressions: Service Date/Time: Tuesday, August 29, 2017 10:12 - CONCLUSION: Small broad disc protrusion at T10-11. No evidence of cord abnormality or significant canal compromise Thad Patino MD Cervical Spine MRI 08/29/17 0000 Signed Impressions: Service Date/Time: Tuesday, August 29, 2017 10:12 - CONCLUSION: 1. Tiny central disc bulge at C4-5. 2. Mild diffuse disc bulge at C5-6 and minimal diffuse disc bulge at C6-7. 3. Minimal spinal stenosis and facet joint hypertrophy at C4-5 and C5-6. 4. No fracture or prevertebral soft tissue swelling. 5. Cervical spondylosis at C5-6, C6-7 and to a lesser extent at C4- 5. 6. Mild bilateral foraminal narrowing is noted at C5-6. Curtis Gross MD Lumbar Spine MRI 08/28/17 0000 Signed Impressions: Service Date/Time: Monday, August 28, 2017 11:19 - CONCLUSION: Fairly severe canal stenosis at L4-5. Less severe changes at other levels as above Thad Patino MD Head CT 08/28/17 0000 Signed Impressions: Service Date/Time: Monday, August 28, 2017 14:34 - CONCLUSION: 1. No evidence of acute intracranial pathology. No masses are identified. Lamberto Sidhu MD Laboratory Tests Test 08/28/17 21:45 08/29/17 04:14 08/29/17 07:20 Prothrombin Time 11.2 SEC Prothromb Time International Ratio 1.1 RATIO Activated Partial Thromboplast Time 26.0 SEC Blood Urea Nitrogen 11 MG/DL Creatinine 0.42 MG/DL Random Glucose 57 MG/DL 62 MG/DL Total Protein 5.4 GM/DL Calcium Level 6.7 MG/DL Sodium Level 133 MEQ/L Potassium Level 2.9 MEQ/L 5.2 MEQ/L Chloride Level 101 MEQ/L Carbon Dioxide Level 25.3 MEQ/L Anion Gap 7 MEQ/L Estimat Glomerular Filtration Rate 151 ML/MIN Protein Corrected Calcium 7.5 MG/DL (Umesh Junior) Medical Decision Making Impression and Plan A: 1. Severe L4-L5 lumbar spinal stenosis which appears to be chronic. 2. One month history of urinary incontinence with subjective weakness in the legs. It is questionable whether this is related to a paraneoplastic syndrome given her lymphadenopathy in the retroperitoneum as well as history of breast cancer, or related to the lumbar spinal stenosis. 3. Unregulated hypertension. 4. No significant cervical or thoracic spinal stenosis to cause pts symptoms PLAN Dr. Chen and I have discussed the findings regarding the lumbar spine and recommended an L4-L5 decompressive laminectomy for the stenosis. The risks and benefits involved were discussed along with the possibility that if left untreated she could progress to more significant cauda equina syndrome with likely complete paralysis and incontinence. Pt again states she wants to discuss with the Oncologist his opinion. She understands if the incontinence is from the severe spinal stenosis the longer the compression is present the less likely to have improvement even with surgery, and even if she had surgery there is no guarantee this will resolve but gives her the best chance of improvement and to prevent further progression with worsening function/complete cauda equina syndrome. Continue with DVT prophylaxis Continue with PT Medical Oncology has been consulted. (Umesh Junior) Attending Statement The exam, history, and the medical decision-making described in the above note were completed with the assistance of the mid-level provider. I reviewed and agree with the findings presented. I attest that I had a [id number] encounter with the patient on the same day, and personally performed and documented my assessment and findings in the medical record. (Guerrero Chen MD) Umesh Junior Aug 29, 2017 17:31 Guerrero Chen MD Aug 30, 2017 08:42
[2017-08-29 21:00] VITALS: BP 113/57; PULSE 76; RESP 17; TEMP 98.2; O2SAT 95
[2017-08-30] VITALS: BP 141/79; PULSE 65; RESP 18; TEMP 97.1; O2SAT 95
[2017-08-30 04:00] VITALS: BP 137/77; PULSE 67; RESP 18; TEMP 97.6; O2SAT 95
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
[2017-08-30 08:00] VITALS: BP 151/69; PULSE 64; RESP 20; TEMP 98.1; O2SAT 95
[2017-08-30] MEDS: SODIUM CHLORIDE 0.9% FLUSH 10 ML FLUSH IV FLUSH SCH ×2 (08:35→22:40)
[2017-08-30] MEDS: METOPROLOL TARTRATE 25 MG TAB PO SCH ×2 (08:36→22:39)
[2017-08-30] MEDS: DOCUSATE SODIUM 50 MG/SENNA 8.6 MG TAB PO SCH ×2 (08:37→22:39)
[2017-08-30] MEDS: LISINOPRIL 20 MG TAB PO SCH (08:37)
[2017-08-30] MEDS ORDERED: oxyCODONE/ACETAMINOPHEN 5 MG/325 MG TAB PO PRN (08:45)
[2017-08-30] MEDS ORDERED: MORPHINE SULFATE 4 MG/ML INJ IV PUSH PRN (08:45)
[2017-08-30] MEDS: ACETAMINOPHEN 325 MG TAB PO PRN ×2 (08:49→22:39)
--- NOTE | 2017-08-30 10:07 | HHI.NSPN ---
(Umesh Junior) History Chief Complaint: Incontinence or urine (Umesh Junior) Interval History The patient is a 66-year-old female who presents to the emergency room with complaints of urinary incontinence. She is not very clear on her history, but approximately one month ago, she started noticing urinary incontinence. The last few days she said it is more prominent. She has been wearing diapers. Although the last two days she has had better control of her urine, although she still has urgency and frequency. She has had subjective weakness in her legs but she relates this to walking a lot. She is from [place] and has some relatives here which she has not been able to locate and apparently is currently homeless. She has a very disheveled appearance. She has a chronic history of back pain and numbness in the lower extremities distally in her feet and to some extent the upper extremities distally in the fingers also. She was seen back about four days ago when she requested a refill of her blood pressure medications and at that time also complained of some abdominal pain. On CT scan she was found have retroperitoneal adenopathy with the possibility of a metastatic disease along with diverticulosis and cholelithiasis. She was referred to medical oncology although has not been evaluated by the oncologist. Workup included an MRI scan of the lumbar spine which reveals a severe spinal stenosis at the L4-5 level, predominantly from facet ligamentum flavum hypertrophy with lesser degree of degenerate changes at other levels. Urinalysis is negative for UTI. 08/29/17: Pt awake and alert. Resting comfortably in bed. Complains of urinary incontinence. Denies any perirectal or perivaginal numbness. She states she has soreness there from the chronic urinary output. She is in depends. Pt stats she is thinking about surgery but would like to speak with Oncology prior to deciding. 08/30/17: Pt awake and alert. sitting up in bed eating breakfast. She states she spoke with medical oncology and pt states she wants to go be with her sister in [place] and is not wanting any surgical intervention down here. She states her symptoms are the same currently with subjective weakness in LEs and urinary incontinence. She understands the risk of progressive weakness in LEs and permanent bowel/bladder, complete cauda equina syndrome and she is willing to accept this. (Umesh Junior) Review of Systems General: Negative for: fever, chills, insomnia Respiratory: Negative for: shortness of breath, cough, sputum Cardiovascular: Negative for: chest pain Gastrointestinal: Negative for: nausea, vomitting, diarrhea, constipation ( Umesh Junior) Exam Results Vital Signs Date Time Temp Pulse Resp B/P (MAP) Pulse Ox O2 Delivery O2 Flow Rate FiO2 08/30/17 08:00 98.1 64 20 151/69 (96) 95 08/28/17 16:21 Room Air (Umesh Junior) Physical Examination General: Pt sitting up in bed eating breakfast in bed in NAD. Eyes. Pupils equal, sclera anicteric Resp: CTA bilaterally Heart: NSR no murmurs Abd: Soft positive bs Skin: No cyanosis or erythema Muscle: Moves LEs with good strength 5/5. Neuro: Pt awake and alert. Follows commands well. Speech clear and appropriate. Comprehension good. She asks appropriate questions. Sensation intact in LEs. (Umesh Junior) Lab, Micro, Other Results Last Impressions Thoracic Spine MRI 08/29/17 0000 Signed Impressions: Service Date/Time: Tuesday, August 29, 2017 10:12 - CONCLUSION: Small broad disc protrusion at T10-11. No evidence of cord abnormality or significant canal compromise Thad Patino MD Cervical Spine MRI 08/29/17 0000 Signed Impressions: Service Date/Time: Tuesday, August 29, 2017 10:12 - CONCLUSION: 1. Tiny central disc bulge at C4-5. 2. Mild diffuse disc bulge at C5-6 and minimal diffuse disc bulge at C6-7. 3. Minimal spinal stenosis and facet joint hypertrophy at C4-5 and C5-6. 4. No fracture or prevertebral soft tissue swelling. 5. Cervical spondylosis at C5-6, C6-7 and to a lesser extent at C4- 5. 6. Mild bilateral foraminal narrowing is noted at C5-6. Curtis Gross MD Lumbar Spine MRI 08/28/17 0000 Signed Impressions: Service Date/Time: Monday, August 28, 2017 11:19 - CONCLUSION: Fairly severe canal stenosis at L4-5. Less severe changes at other levels as above Thad Patino MD Head CT 08/28/17 0000 Signed Impressions: Service Date/Time: Monday, August 28, 2017 14:34 - CONCLUSION: 1. No evidence of acute intracranial pathology. No masses are identified. Lamberto Sidhu MD (Umesh Junior) Medical Decision Making Impression and Plan A: 1. Severe L4-L5 lumbar spinal stenosis which appears to be chronic. 2. One month history of urinary incontinence with subjective weakness in the legs. It is questionable whether this is related to a paraneoplastic syndrome given her lymphadenopathy in the retroperitoneum as well as history of breast cancer, or related to the lumbar spinal stenosis. 3. Unregulated hypertension. 4. No significant cervical or thoracic spinal stenosis to cause pts symptoms PLAN Treatment options were again discussed with the pt and she is very clear that she doesn't want surgical intervention currently and wants to go up to [place] where her sister is and seek medical/surgical care there. She understands the risk with delaying surgery which could leave her with permanent incontinence or worsening clinical condition causing weakness and or complete cauda equina syndrome. She is willing to take these risks. (Umesh Junior) Attending Statement The exam, history, and the medical decision-making described in the above note were completed with the assistance of the mid-level provider. I reviewed and agree with the findings presented. I attest that I had a [id number] encounter with the patient on the same day, and personally performed and documented my assessment and findings in the medical record. Pt refuses surgery for severe L4-5 stenosis. We will sign off at this point. (Guerrero Chen MD) Umesh Junior Aug 30, 2017 10:06 Guerrero Chen MD Aug 30, 2017 14:12
[2017-08-30 12:03] VITALS: BP 126/75; PULSE 75; RESP 20; TEMP 97.7; O2SAT 99
[2017-08-30 13:04] LABS: BICARBONATE 32.4 MEQ/L (21.0-32.0); CREATININE 0.7 MG/DL (0.50-1.00)
[2017-08-30 16:18] VITALS: BP 127/64; PULSE 72; RESP 20; TEMP 98.3; O2SAT 100
--- NOTE | 2017-08-30 17:11 | PD.RAD ---
Radiology Note 66 y/o with a remote history of breast cancer(approximately [address] imaging 08/24/17 demonstrates a small retroperitoneal node (1.2 x 1.1 cm). we are asked to preform a ct guide biopsy A/P: The Ct was reviewed the node is situated in a location that is not amenable to CT guided biopsy. Full dictated report in PACS Moshe Cochran MD Aug 30, 2017 17:11
--- NOTE | 2017-08-30 17:14 | RADRPT ---
EXAM DATE/TIME: 08/30/2017 00:00 [facility] COMPARISON: CT BRAIN W/O CONTRAST, August 28, 2017, 14:34. INDICATIONS : Biopsy retropertoneal node, history of breast cancer, possible metastatsis FINDINGS: The patient is a 66-year-old with a remote history of breast cancer. The patient underwent CT imaging 08/24/17 which demonstrated a 1.2 x 1.1 cm retroperitoneal node. We're asked to perform biopsy of the node. The CT was reviewed. The node is quite small in size and situated anterior to the vertebral bodies an d in between the aorta and IVC. The node is in a location which is not amenable to percutaneous biops y. CONCLUSION: 1. The patient's small retroperitoneal lymph node is not amenable to percutaneous CT-guided biopsy. Moshe Cochran MD on August 30, 2017 at 17:11 Board Certified Radiologist. This report was verified electronically.
--- NOTE | 2017-08-30 18:04 | HHI.PR ---
Subjective Remarks Follow up for urinary incontinence, L4-L5 severe spinal stenosis. Currently doing well. She occasionally has no control over her bladder movements. She wants to go to [place] and then take care of any medical/surgical needs. She will discuss with her sister. Objective Vitals Vital Signs Date Time Temp Pulse Resp B/P (MAP) Pulse Ox O2 Delivery O2 Flow Rate FiO2 08/30/17 16:18 98.3 72 20 127/64 (85) 100 08/30/17 12:03 97.7 75 20 126/75 (92) 99 08/30/17 08:00 98.1 64 20 151/69 (96) 95 08/30/17 04:00 97.6 67 18 137/77 (97) 95 08/30/17 00:00 97.1 65 18 141/79 (99) 95 08/29/17 21:00 98.2 76 17 113/57 (75) 95 I/O 08/29/17 08/29/17 08/29/17 08/30/17 08/30/17 08/30/17 06:59 14:59 22:59 06:59 14:59 22:59 Intake Total 1000 ml 1250 ml 540 ml Balance 1000 ml 1250 ml 540 ml Intake Oral 1000 ml 1250 ml 540 ml # Voids 4 5 5 # Bowel Movements 0 2 3 Result Diagram: 08/28/17 0835 08/30/17 1205 Imaging Last Impressions Consultation 08/30/17 0000 Signed Impressions: Service Date/Time: August 00:00 - CONCLUSION: 1. The patient's small retroperitoneal lymph node is not amenable to percutaneous CT-guided biopsy. Moshe Cochran MD Thoracic Spine MRI 08/29/17 0000 Signed Impressions: Service Date/Time: Tuesday, August 29, 2017 10:12 - CONCLUSION: Small broad disc protrusion at T10-11. No evidence of cord abnormality or significant canal compromise Thad Patino MD Cervical Spine MRI 08/29/17 0000 Signed Impressions: Service Date/Time: Tuesday, August 29, 2017 10:12 - CONCLUSION: 1. Tiny central disc bulge at C4-5. 2. Mild diffuse disc bulge at C5-6 and minimal diffuse disc bulge at C6-7. 3. Minimal spinal stenosis and facet joint hypertrophy at C4-5 and C5-6. 4. No fracture or prevertebral soft tissue swelling. 5. Cervical spondylosis at C5-6, C6-7 and to a lesser extent at C4- 5. 6. Mild bilateral foraminal narrowing is noted at C5-6. Curtis Gross MD Lumbar Spine MRI 08/28/17 0000 Signed Impressions: Service Date/Time: Monday, August 28, 2017 11:19 - CONCLUSION: Fairly severe canal stenosis at L4-5. Less severe changes at other levels as above Thad Patino MD Head CT 08/28/17 0000 Signed Impressions: Service Date/Time: Monday, August 28, 2017 14:34 - CONCLUSION: 1. No evidence of acute intracranial pathology. No masses are identified. Lamberto Sidhu MD Objective Remarks GENERAL: Alert, NAD. SKIN: Warm and dry. HEAD: Normocephalic. EYES: No scleral icterus. No injection or drainage. NECK: Supple, trachea midline. No JVD or lymphadenopathy. CARDIOVASCULAR: Regular rate and rhythm without murmurs, gallops, or rubs. RESPIRATORY: Breath sounds equal bilaterally. No accessory muscle use. GASTROINTESTINAL: Abdomen soft, non-tender, nondistended. MUSCULOSKELETAL: No cyanosis, or edema. BACK: Nontender without obvious deformity. No CVA tenderness. Procedures None. A/P Problem List: (1) Breast cancer ICD Code: C50.919 - Malignant neoplasm of unspecified site of unspecified female breast (2) Lumbar spinal stenosis ICD Code: M48.061 - Spinal stenosis, lumbar region without neurogenic claudication Status: Acute (3) Urinary incontinence ICD Code: R32 - Unspecified urinary incontinence Status: Acute Assessment and Plan This is a 66-year-old female with history of hypertension complaining of urinary incontinence, abdominal pain, back pain, lower extremity weakness. - Severe L4-L5 spinal stenosis - Urinary incontinence - Urology as well as Neurosurgery following. - Medical oncology consulted, appreciate recommendations - Patient does not want to undergo any surgical intervention here. She wants to go to [place]. - Pt will d/w with sister regarding transportation possibilities. - Retroperitoneal adenopathy - Hx of Breast cancer - Right now, her urinary incontinence and L4-5 stenosis is much more important to address. - Possible outpatient work up. - Hypertension - Lisinopril 20mg Qday, Metoprolol 25mg BID. Full code. SCDs. Problem Qualifiers (1) Lumbar spinal stenosis: Qualified Codes: M48.062 - Spinal stenosis, lumbar region with neurogenic claudication (2) Urinary incontinence: Qualified Codes: N39.45 - Continuous leakage Radha Harper DO Aug 30, 2017 18:04
[2017-08-30 20:00] VITALS: BP 146/76; PULSE 79; RESP 18; TEMP 97.8; O2SAT 96
[2017-08-30] MEDS: SODIUM CHLOR 0.45% 1000 ML INJ 1,000 ML IV SCH (22:49)
[2017-08-31] VITALS: BP 140/65; PULSE 75; RESP 18; TEMP 98.2; O2SAT 96
[2017-08-31 04:00] VITALS: BP 142/83; PULSE 66; RESP 18; TEMP 97.8; O2SAT 97
[2017-08-31 08:00] VITALS: BP 151/89; PULSE 73; RESP 17; TEMP 98; O2SAT 100
[2017-08-31] MEDS: SODIUM CHLOR 0.45% 1000 ML INJ 1,000 ML IV SCH (08:04)
[2017-08-31] MEDS: METOPROLOL TARTRATE 25 MG TAB PO SCH (08:07)
[2017-08-31] MEDS: DOCUSATE SODIUM 50 MG/SENNA 8.6 MG TAB PO SCH (08:07)
[2017-08-31] MEDS: LISINOPRIL 20 MG TAB PO SCH (08:07)
[2017-08-31] MEDS: SODIUM CHLORIDE 0.9% FLUSH 10 ML FLUSH IV FLUSH SCH (08:07)
[2017-08-31 12:00] VITALS: BP 117/58; PULSE 72; RESP 17; TEMP 98.2; O2SAT 96
--- NOTE | 2017-08-31 13:40 | HHI.PR ---
Subjective Remarks Follow up for urinary incontinence, L4-L5 severe spinal stenosis. Patient is doing well. Ambulating in the room. She does not have any clear plan as to how she will go to [place]. She wants to go to [place], however. Objective Vitals Vital Signs Date Time Temp Pulse Resp B/P (MAP) Pulse Ox O2 Delivery O2 Flow Rate FiO2 08/31/17 12:00 98.2 72 17 117/58 (77) 96 08/31/17 08:00 98.0 73 17 151/89 (109) 100 08/31/17 04:00 97.8 66 18 142/83 (102) 97 08/31/17 00:00 98.2 75 18 140/65 (90) 96 08/30/17 20:00 97.8 79 18 146/76 (99) 96 08/30/17 16:18 98.3 72 20 127/64 (85) 100 I/O 08/30/17 08/30/17 08/30/17 08/31/17 08/31/17 08/31/17 07:00 15:00 23:00 07:00 15:00 23:00 Intake Total 540 ml Balance 540 ml Intake Oral 540 ml # Voids 5 2 # Bowel Movements 3 0 Result Diagram: 08/28/17 0835 08/30/17 1205 Imaging Last Impressions Consultation 08/30/17 0000 Signed Impressions: Service Date/Time: August 00:00 - CONCLUSION: 1. The patient's small retroperitoneal lymph node is not amenable to percutaneous CT-guided biopsy. Moshe Cochran MD Thoracic Spine MRI 08/29/17 0000 Signed Impressions: Service Date/Time: Tuesday, August 29, 2017 10:12 - CONCLUSION: Small broad disc protrusion at T10-11. No evidence of cord abnormality or significant canal compromise Thad Patino MD Cervical Spine MRI 08/29/17 0000 Signed Impressions: Service Date/Time: Tuesday, August 29, 2017 10:12 - CONCLUSION: 1. Tiny central disc bulge at C4-5. 2. Mild diffuse disc bulge at C5-6 and minimal diffuse disc bulge at C6-7. 3. Minimal spinal stenosis and facet joint hypertrophy at C4-5 and C5-6. 4. No fracture or prevertebral soft tissue swelling. 5. Cervical spondylosis at C5-6, C6-7 and to a lesser extent at C4- 5. 6. Mild bilateral foraminal narrowing is noted at C5-6. Curtis Gross MD Lumbar Spine MRI 08/28/17 0000 Signed Impressions: Service Date/Time: Monday, August 28, 2017 11:19 - CONCLUSION: Fairly severe canal stenosis at L4-5. Less severe changes at other levels as above Thad Patino MD Head CT 08/28/17 0000 Signed Impressions: Service Date/Time: Monday, August 28, 2017 14:34 - CONCLUSION: 1. No evidence of acute intracranial pathology. No masses are identified. Lamberto Sidhu MD Objective Remarks GENERAL: Alert, NAD. SKIN: Warm and dry. HEAD: Normocephalic. EYES: No scleral icterus. No injection or drainage. NECK: Supple, trachea midline. No JVD or lymphadenopathy. CARDIOVASCULAR: Regular rate and rhythm without murmurs, gallops, or rubs. RESPIRATORY: Breath sounds equal bilaterally. No accessory muscle use. GASTROINTESTINAL: Abdomen soft, non-tender, nondistended. MUSCULOSKELETAL: No cyanosis, or edema. BACK: Nontender without obvious deformity. No CVA tenderness. Procedures None. A/P Problem List: (1) Breast cancer ICD Code: C50.919 - Malignant neoplasm of unspecified site of unspecified female breast (2) Lumbar spinal stenosis ICD Code: M48.061 - Spinal stenosis, lumbar region without neurogenic claudication Status: Acute (3) Urinary incontinence ICD Code: R32 - Unspecified urinary incontinence Status: Acute Assessment and Plan This is a 66-year-old female with history of hypertension complaining of urinary incontinence, abdominal pain, back pain, lower extremity weakness. - Severe L4-L5 spinal stenosis - Urinary incontinence - Urology as well as Neurosurgery following. - Medical oncology consulted, appreciate recommendations - Patient does not want to undergo any surgical intervention here. She wants to go to [place]. - Pt will d/w with sister regarding transportation possibilities. - Case management is working on various possible transportation ways. I tried calling patient's sister - no answer, left a VM. - Retroperitoneal adenopathy - Hx of Breast cancer - Right now, her urinary incontinence and L4-5 stenosis is much more important to address. - Possible outpatient work up. - Hypertension - Lisinopril 20mg Qday, Metoprolol 25mg BID. Full code. SCDs. Problem Qualifiers (1) Lumbar spinal stenosis: Qualified Codes: M48.062 - Spinal stenosis, lumbar region with neurogenic claudication (2) Urinary incontinence: Qualified Codes: N39.45 - Continuous leakage Radha Harper DO Aug 31, 2017 1:40 pm
[2017-08-31 16:00] VITALS: BP 129/73; PULSE 82; RESP 17; TEMP 98.2; O2SAT 100
--- NOTE | 2017-08-31 21:05 | HHI.DS ---
Discharge Summary Admission Date Aug 30, 2017 at 11:31 Discharge Date: Aug 31, 2017 Admitting Diagnosis Lumbar stenosis, urinary incontinence (1) Breast cancer ICD Code: C50.919 - Malignant neoplasm of unspecified site of unspecified female breast (2) Lumbar spinal stenosis ICD Code: M48.061 - Spinal stenosis, lumbar region without neurogenic claudication Status: Acute (3) Urinary incontinence ICD Code: R32 - Unspecified urinary incontinence Status: Acute Procedures None. Brief History - From Admission This is a 66-year-old female past medical history of hypertension who presented with abdominal pain, back pain, lower extremity weakness, and urinary incontinence. Patient is a very poor historian and sometimes have difficulty answering questions because she is tangential with her conversation. Patient stated that she had abdominal pain yesterday so went to the emergency department. I told patient that she is actually here a few days ago for this complaining of the same problems. She then stated that her abdominal pain occurred about a week ago and it got better but got worse yesterday. Abdominal pain is more like a pressure in the right lower quadrant. When she was seen in the ER a couple of days ago for this CT scan was negative. Patient then stated that she also had mid back pain that started yesterday night and lower extremity weakness. She also stated that she developed incontinence since yesterday. Patient stated that urine will come out and she would not know it. She also complained about urinary urgency. UA was done in the emergency department which was negative. Patient also admits to lower extremity weakness. She stated that when she walks she feels like her lower extremity is numb. Patient also stated that she had back pain about 3 times in her life but it is not chronic and there was no recent pain since this episode. Patient also complained about a right posterior headache. She states that she had a headache in the past about 2-3 times. Headache improved with Tylenol. She denies any visual changes or focal neurological deficits. Patient also complained of 1 day of watery stools. She said that she only had 2 bowel movements yesterday. Denies nausea vomiting. Denies any fevers or chills. All other review of system reviewed and negative. CBC/BMP: 08/28/17 0835 08/30/17 1205 Significant Findings Laboratory Tests Test 08/28/17 21:45 08/29/17 04:14 08/29/17 07:20 08/30/17 12:05 Creatinine 0.42 MG/DL (0.50-1.00) Random Glucose 57 MG/DL (74-106) 62 MG/DL (74-106) Total Protein 5.4 GM/DL (6.4-8.2) Calcium Level 6.7 MG/DL (8.5-10.1) Sodium Level 133 MEQ/L (136-145) Potassium Level 2.9 MEQ/L (3.5-5.1) 5.2 MEQ/L (3.5-5.1) 3.3 MEQ/L (3.5-5.1) Protein Corrected Calcium 7.5 MG/DL (8.5-10.1) Carbon Dioxide Level 32.4 MEQ/L (21.0-32.0) Estimat Glomerular Filtration Rate 84 ML/MIN (>89) Imaging Last Impressions Consultation 08/30/17 0000 Signed Impressions: Service Date/Time: August 00:00 - CONCLUSION: 1. The patient's small retroperitoneal lymph node is not amenable to percutaneous CT-guided biopsy. Moshe Cochran MD Thoracic Spine MRI 08/29/17 0000 Signed Impressions: Service Date/Time: Tuesday, August 29, 2017 10:12 - CONCLUSION: Small broad disc protrusion at T10-11. No evidence of cord abnormality or significant canal compromise Thad Patino MD Cervical Spine MRI 08/29/17 0000 Signed Impressions: Service Date/Time: Tuesday, August 29, 2017 10:12 - CONCLUSION: 1. Tiny central disc bulge at C4-5. 2. Mild diffuse disc bulge at C5-6 and minimal diffuse disc bulge at C6-7. 3. Minimal spinal stenosis and facet joint hypertrophy at C4-5 and C5-6. 4. No fracture or prevertebral soft tissue swelling. 5. Cervical spondylosis at C5-6, C6-7 and to a lesser extent at C4- 5. 6. Mild bilateral foraminal narrowing is noted at C5-6. Curtis Gross MD Lumbar Spine MRI 08/28/17 0000 Signed Impressions: Service Date/Time: Monday, August 28, 2017 11:19 - CONCLUSION: Fairly severe canal stenosis at L4-5. Less severe changes at other levels as above Thad Patino MD Head CT 08/28/17 0000 Signed Impressions: Service Date/Time: Monday, August 28, 2017 14:34 - CONCLUSION: 1. No evidence of acute intracranial pathology. No masses are identified. Lamberto Sdihu MD PE at Discharge GENERAL: Alert, NAD. SKIN: Warm and dry. HEAD: Normocephalic. EYES: No scleral icterus. No injection or drainage. NECK: Supple, trachea midline. No JVD or lymphadenopathy. CARDIOVASCULAR: Regular rate and rhythm without murmurs, gallops, or rubs. RESPIRATORY: Breath sounds equal bilaterally. No accessory muscle use. GASTROINTESTINAL: Abdomen soft, non-tender, nondistended. MUSCULOSKELETAL: No cyanosis, or edema. BACK: Nontender without obvious deformity. No CVA tenderness. Pt update on day of discharge Patient is doing well. Ambulating well, tolerating diet well. We discussed at length about her plan. She still wants to go to [place] where she follows up with an Oncologist. She wants to be near her sister and consider further treatment options in [place]. Hospital Course This is a 66-year-old female with history of hypertension complaining of urinary incontinence, abdominal pain, back pain, lower extremity weakness. - Severe L4-L5 spinal stenosis - Urinary incontinence - Urology as well as Neurosurgery following. - Medical oncology consulted, appreciate recommendations - Patient does not want to undergo any surgical intervention here. She wants to go to [place]. - Detail about discharge, transportation below. - Retroperitoneal adenopathy - Hx of Breast cancer - Right now, her urinary incontinence and L4-5 stenosis is much more important to address. - Possible outpatient work up. - Radiology evaluated and determined that lymph nodes cannot be biopsied with CT guided approach. - Patient can follow up with her Oncologist in [place] ([email or web address]). Again, per our oncologist, the more pressing issue at hand is patient's L4-L5 stenosis and bladder incontinence. - Hypertension - Lisinopril 20mg Qday, Metoprolol 25mg BID. Full code. SCDs. We spent a long time trying to coordinate a good discharge plan for the patient. I discussed with patient's sister who is willing to help as much as she can. She discussed with our nurse case manager as well. Case management has kindly offered to pay for the [employer] travel to [place]. Although patient came from the community, she has severe L4-L5 stenosis and bladder incontinence. Neurosurgery has stated that delay in surgery may cause permanent incontinence or complete cauda equina syndrome. Patient does not want to have the surgery done here because she lacks social support which she has in [place]. Her oncologist is with [facility] and she has her sister there. I believe it is in the best interest of the patient to at least try to help her go to [place] where she will not be homeless and will not be lost to follow up. If we discharge her to the community here, there is a huge possibility that she will be on the street and potentially face clinical deterioration. Transportation was arranged. Patient's sister in [place] is aware of the arrangement. Patient was subsequently discharged. Transportation was arranged for her to go to [employer] station. Ticket was also arranged. Pt Condition on Discharge: Good Discharge Disposition: Discharge Home Discharge Time: > 30 minutes Discharge Instructions DIET: Follow Instructions for: As Tolerated, No Restrictions Activities you can perform: Regular-No Restrictions Continued Medications: Lisinopril (Lisinopril) 20 Mg Tab 20 MG PO DAILY, #30 TAB 0 Refills Metoprolol Tartrate (Metoprolol Tartrate) 25 Mg Tab 25 MG PO BID, #60 TAB 0 Refills Radha Harper DO Aug 31, 2017 21:05
== END 2017-08-31 18:15 | disposition home or self-care (01) | DRG 552 ==
LOC: NEPE 07:51 → NEDA 13:33 → INTOOBSV 13:33 → N05B 16:47 → OBSVTOIN 08-30 11:31
PROVIDERS: ADMIT Hospitalist; ATTEND Hospitalist
DX: M48.062 Spinal stenosis, lumbar region with neurogenic claudication (principal); I10 Essential (primary) hypertension; N39.41 Urge incontinence; R51 Headache; R59.0 Localized enlarged lymph nodes; K57.90 Diverticulosis of intestine, part unspecified, without perforation or abscess without bleeding; K80.20 Calculus of gallbladder without cholecystitis without obstruction; Z59.0 Homelessness; Z85.3 Personal history of malignant neoplasm of breast; Z90.11 Acquired absence of right breast and nipple; Z92.21 Personal history of antineoplastic chemotherapy; Z92.3 Personal history of irradiation
CPT/HCPCS: 70450; 72141; 72146; 72158; 76937; 80048; 80053; 81001; 82947; 82948; 84132; 84155; 85025; 85610; 85730; 87086; 96360; 96361; A9579; G8987-GP; G8988-GP; J3480; J7030

== ENCOUNTER 2017-09-11 06:55 | Emergency (ER) | payer MEDICARE ==
[~2017-09-11] VITALS: Ht 157.5 cm; Wt 65.0 kg
[2017-09-11 07:15] VITALS: BP 181/80; PULSE 71; RESP 18; TEMP 97.8; O2SAT 99
--- NOTE | 2017-09-11 09:03 | RADRPT ---
EXAM DATE/TIME: 09/11/2017 08:39 [place] COMPARISON: CT BRAIN W/O CONTRAST, August 28, 2017, 14:34. INDICATIONS : Cephalgia. RADIATION DOSE: 56.35 CTDIvol (mGy) MEDICAL HISTORY : Cardiovascular disease. Hypertension. Carcinoma, breast. SURGICAL HISTORY : Mastectomy, right. ENCOUNTER: Initial ACUITY: 1 day PAIN SCALE: 7/10 LOCATION: cranial TECHNIQUE: Multiple contiguous axial images were obtained of the head. Using automated exposure control and adj ustment of the mA and/or kV according to patient size, radiation dose was kept as low as reasonably a chievable to obtain optimal diagnostic quality images. DICOM format image data is available electro nically for review and comparison. FINDINGS: CEREBRUM: The ventricles are normal for age. No evidence of midline shift, mass lesion, hemorrhage or acute in farction. No extra-axial fluid collections are seen. POSTERIOR FOSSA: The cerebellum and brainstem are intact. The 4th ventricle is midline. The cerebellopontine angle i s unremarkable. EXTRACRANIAL: The visualized portion of the orbits is intact. SKULL: The calvaria is intact. No evidence of skull fracture. CONCLUSION: Normal examination. Thad Patino MD on September 11, 2017 at 8:57 Board Certified Radiologist. This report was verified electronically.
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
[2017-09-11 09:36] LABS: BILIRUBIN, URINE NEG (NEG); BLOOD, URINE NEG (NEG); GLUCOSE,URINE NEG (NEG); KETONE, URINE NEG (NEG); NITRITE,URINE NEG (NEG); PH, URINE 6.5 (5.0-8.5); URINE COLOR LIGHT-YELLOW (YELLW/STRAW); URINE LEUKOCYTE ESTERASE NEG (NEG)
[2017-09-11 10:05] LABS: AUTOMATED NEUTROPHIL # 2.9 TH/MM3 (1.8-7.7); BASOPHIL % 0.4 % (0.0-2.0); EOSINOPHIL # 0.1 TH/MM3 (0-0.4); EOSINOPHIL % 1.3 % (0.0-4.0); HEMATOCRIT 34.7 % (35.0-46.0); HEMOGLOBIN 11.5 GM/DL (11.6-15.3); LYMPH % 23.2 % (9.0-44.0); MEAN CELL VOLUME 87.4 FL (80.0-100.0); MEAN CORPUSCULAR HEMOGLOBIN 28.9 PG (27.0-34.0); MEAN PLATELET VOLUME 8.3 FL (7.0-11.0); MONO % 9.1 % (0.0-8.0); MONOCYTE # 0.4 TH/MM3 (0-0.9); PLATELET COUNT 209 TH/MM3 (150-450); RED BLOOD COUNT 3.97 MIL/MM3 (4.00-5.30); RED CELL DISTRIBUTION WIDTH 15.1 % (11.6-17.2); WHITE BLOOD COUNT 4.4 TH/MM3 (4.0-11.0)
[2017-09-11 10:10] LABS: BICARBONATE 27.7 MEQ/L (21.0-32.0); CALCIUM 8.9 MG/DL (8.5-10.1); CREATININE 0.6 MG/DL (0.50-1.00)
[2017-09-11] MEDS ORDERED: LISI-515 PO (12:59)
[2017-09-11] MEDS ORDERED: METO25TA3 PO (12:59)
[2017-09-11 13:00] VITALS: BP 169/77; PULSE 65; RESP 17; O2SAT 98
== END 2017-09-11 13:19 | disposition home or self-care (01) ==
LOC: NEPE 06:55
DX: I10 Essential (primary) hypertension (principal); R51 Headache
CPT/HCPCS: 70450; 80048; 81001; 85025; 99285